=== PATIENT | female | born 1965 | race Caucasian/White ===

== ENCOUNTER 2016-04-27 08:54 | Day surgery (SDC) | payer OTHER ==
[2016-04-27] VITALS (8 sets, daily range): BP systolic 108–136; BP diastolic 73–84; PULSE 73–98; RESP 14–17; O2SAT 95–98
[~2016-04-27] VITALS: Ht 172.7 cm; Wt 79.8 kg
[~2016-04-27 08:54] MED LIST: CHOL200047 PO; Clindamycin 900 mg/50 mL D5W IV ONE; FLUO20CA25 PO; FLUT16SP NS; LEVO88TA4 PO; LIOT5TAB6 PO; MULT-1093 PO
[2016-04-27] MEDS ORDERED: fentaNYL-PF 50 mCg/mL 2 mL Inj ONE (08:55)
[2016-04-27] MEDS ORDERED: Dexamethasone 4 mg/mL Inj ONE (08:55)
[2016-04-27] MEDS ORDERED: Glycopyrrolate 0.2 mg/mL 5 mL Inj ONE (08:55)
[2016-04-27] MEDS ORDERED: Propofol 10,000 mCg/mL 20 mL Inj ONE (08:55)
[2016-04-27] MEDS ORDERED: Ondansetron 2 mg/mL 2 mL Inj ONE (08:55)
[2016-04-27] MEDS: Lactated Ringer's 1,000 ML IV SCH ×2 (09:16→09:46)
--- NOTE | 2016-04-27 09:44 | PCM.HPANE ---
Patient Data Surgeon Admitting Provider: Attending Provider:James Riggins MD Primary Care Physician:Caron Vivas MD Other Provider:[facility] [facility] Reason for Visit Left Ring Finger Ganglion Cyst, Trigger Finger Ht/WT & BMI Height (Feet): 5 Height (Inches): 8 Weight (Kilograms): 79.8 Body Mass Index 26.00 Allergies Coded Allergies: sulfamethoxazole (Verified Allergy, Severe, severe itching, 01/13/09) sulfanilamide (Verified Allergy, Severe, throat swelling, 04/27/16) trimethoprim (Verified Allergy, Severe, severe itching, 01/13/09) cefuroxime (Verified Allergy, Intermediate, Rash,Itching,, 08/21/15) Penicillins (Verified Allergy, Unknown, unknown, 01/13/09) Uncoded Allergies: CHLORAPREP (Allergy, Unknown, RASH, 04/27/16) STATES HAD RASH WITH [facility] Past Anesthesia History Anesthesia History: Denies:: Abnormal Airway, Anesthesia Reactions, Difficult Intubation, Fam Anesthesia Reaction, Fam Malignant Hypertherm Diabetes History Hx Diabetes?: No MRSA MRSA: No Medications Hypertension Medication: No Home Meds Incl Beta Mei: No Reported Medications Fluticasone Propionate (Fluticasone Propionate Nasal)16 Gm Britt.susp1 Britt NS BID #16 GM Ref 0 04/22/16 Cholecalciferol (Vitamin D3) (Vitamin D3)2,000 Unit Capsule4,000 Unit PO DAILY 12/21/15 Multivitamin-Min/Iron/FA/Vit K (Multi-Day Plus Minerals Tablet)18 Mg Iron-400 Mcg-25 Mcg Tablet1 Each PO DAILY 12/21/15 Levothyroxine 88 Mcg Hxjttx58 Mcg PO DAILY Ref 0 12/21/15 Fluoxetine 20 Mg Etjaghr55-68 Mg PO DAILY Ref 0 12/21/15 Liothyronine Sodium (Cytomel)5 Mcg Tablet5 Mcg PO DAILY 12/21/15 History History of ENT Problems?: Yes HEENT History: Positive for:: Sinus Problem (nasal obstruction, nasal drip) Denies:: Abnormal Airway Cataracts Difficult Intubation Dysphagia Hearing Problem TMJ Hx of Heart Problems?: No Cardiovascular History: Denies:: AICD Cardiac Surgery Chest Pain Congestive Heart Failure Edema Heart Murmur Hypertension Pacemaker Hx of Respiratory Problem?: Yes Respiratory History: Positive for:: Pneumonia (a few years ago) Denies:: Asthma COPD Emphysema Oxygen Administration Tuberculosis Use of C-PAP Machine Hx Neurologic Problems?: No Neurological History: Denies:: CVA Dementia Dizziness Headaches Multiple Sclerosis Parkinson's Disease Seizures Hx of GI Problems?: Yes Gastrointestinal History: Denies:: Gastroesphageal Reflux Heartburn Hepatitis Hiatal Hernia Rectal Bleeding Hx of Problems?: No Genitourinary History: Denies:: Kidney Stones Urinary Tract Infection Female Hx: Denies:: Currently (HYSTERECTOMY) Problems with Breasts? Skin History: Denies:: History Skin Disorders? Hx Musculoskeletal Problems?: Yes Musculoskeletal History: Positive for:: Musculoskeletal Trauma (left ring finger current admission problem) Denies:: Back Injury Degenerative Joint Joint Replacement Systemic Lupus Hx of Psycho/Social Problems?: No Psycho Social History: Positive for:: Anxiety Hx Depression Hx Surgeries?: Yes (hysterectomy, lysis of adhesions, C Sections,ovary removed) Hx Any Other Health Problems?: Yes Other History: Positive for:: Thyroid Disease Denies:: Cancer Endocrine Disease Hospitalization History Blood Transfusions: Denies:: Blood Transfusions Hx Diabetes: No Hx Alcohol Use: YesHx Substance Use: Yes (marijuana- daily) Smoking Status: Never Smoker Have You Smoked inLast 12 mo: No (10 years ) Stop/Bang S-Snoring: Do You Snore Loudly: No T-Tired: feel tired, fatigued: No O-Obsered: Observed not breath: No P-Blood Pressure: treated: No B- Body Mass Index > 35 kg/m2: No A- Age over 50: Yes N- Neck Large Circumference: No G- Gender Male: No FANTA Total Score: 1 FANTA Risk Assessment: Low Risk, <3 Yes Risk Assessment Category Category 1A: Patient has history of documented sleep apnea, and HAS NOT received any narcotic, sedative or anesthesia administration during this stay. Category 1B: Patient has history of documented sleep apnea, and HAS received any narcotic , sedative or anesthesia administration during this stay Category 2: Patient has SUSPECTED Obstructive Sleep Apnea, and HAS received any narcotic , sedative or anesthesia administration during this stay. Category 3: Patient has SUSPECTED Obstructive Sleep Apnea and HAS NOT received narcotic, sedative or anesthesia administration during this stay. Category 4: Outpatient in Procedural Areas with known sleep apnea or who screen positive for High Risk via the STOP/BANG questionnaire. Exam Exam General Appearance: Alert, Oriented X3, Cooperative, No Acute Distress HEENT/AIRWAY: MP 2 Lungs: Clear to Auscultation, Normal Air Movement Heart: Exam Unremarkable, Regular Rate/Rhythm, No Murmurs/Rubs/Gallops Meds/Labs/Diagnostics Admission Meds Current Medications Lactated Ringer's (Lr) 1,000 ml @ 120 mls/hr Q8H20M IV Last administered on t 09:16; Start 04/27/16 at 05:00; Stop 04/27/16 at 13:19 Plan Impression Patient chart reviewed, patient interviewed and anesthestic plan with risks, benefits, and alternatives discussed, and informed consent obtained. NPO Status: 04/26/162099 ASA Physical Status: ASA2 Mod Systemic Disease Anesthetic Plan: GA Bene/Risks/Altern/Consents: Yes HP Complete Prior to Induction: Yes Jacques Burton MD Apr 27, 2016 09:34
[2016-04-27] MEDS ORDERED: Ondansetron 2 mg/mL 2 mL Inj IVPUSH PRN (09:45)
[2016-04-27] MEDS ORDERED: Atropine 0.4 mg/mL Inj IVPUSH PRN (09:45)
[2016-04-27] MEDS ORDERED: MetoCLOpramide 5 mg/mL 2 mL Inj IVPUSH PRN (09:45)
[2016-04-27] MEDS ORDERED: Phenylephrine 10,000 mCg/mL Inj IVPUSH PRN (09:45)
[2016-04-27] MEDS ORDERED: Lactated Ringer's 500 ML IV PRN (09:45)
[2016-04-27] MEDS ORDERED: HYDROmorphone 1 mg/mL Inj IVPUSH PRN (09:45)
[2016-04-27] MEDS ORDERED: Lactated Ringer's 1,000 ML IV SCH (09:45)
[2016-04-27] MEDS ORDERED: EPHEDrine Sulfate 50 mg/mL Inj IVPUSH PRN (09:45)
[2016-04-27] MEDS ORDERED: fentaNYL-PF 50 mCg/mL 2 mL Inj IVPUSH PRN (09:45)
[2016-04-27] MEDS ORDERED: hydrALAZINE 20 mg/mL Inj IVPUSH PRN (09:45)
[2016-04-27] MEDS ORDERED: Labetalol 5 mg/mL 4 mL Inj IV PRN (09:45)
[2016-04-27] MEDS ORDERED: Bupivacaine-MPF 0.25% 30 mL Inj INFILTRATE ONE (09:46)
[2016-04-27] MEDS ORDERED: HYDROcodone-APAP 5-325 mg Tablet PO PRN (10:25)
--- NOTE | 2016-04-27 10:29 | PCM.ANEP2 ---
Post Anesthesia Evaluation ASA/CMS Post Anesthesia VS in Patient's Normal Range?: Yes Resp Stable; Airway Patent?: Yes CV Function & Hydration Stable: Yes Mental Status Recovered?: Yes Pain control Satisfactory?: Yes N/V Control Satisfactory?: Yes Jacques Burton MD Apr 27, 2016 10:29
--- NOTE | 2016-04-27 10:29 | PCM.ANEP1 ---
Post Anesthesia Phase 1 PACU Phase 1 Assessment Vital Signs Vital Signs Date Time Temp Pulse Resp B/P Pulse Ox O2 Delivery O2 Flow Rate FiO2 04/27/16 09:29 36.4 73 16 108/74 98 Room Air Anesthetic Administered: GA Level of Alertness: Awake, talking TRAVIS's with Equal Strength: Yes Pain: No Nausea or Vomiting: No Oxygen Delivery: Nasal Cannula Lungs: Clear to Auscultation, Normal Air Movement Summary VSS, alert in PACU Jacques Burton MD Apr 27, 2016 10:29
--- NOTE | 2016-04-27 14:02 | OP ---
[address] [address] OPERATIVE REPORT PATIENT: VIRA CRENSHAW : 1965 MR#: [id number] ADMIT: 04/27/2016 JOB ID: [id number] DATE OF SURGERY: 04/27/2016 PREOPERATIVE DIAGNOSIS(ES): 1. Left ring finger flexor ganglion tendon. 2. Left ring finger trigger finger. POSTOPERATIVE DIAGNOSIS(ES): 1. Left ring finger flexor ganglion tendon. 2. Left ring finger trigger finger. PROCEDURE: 1. Excision of left ring finger flexor ganglion. 2. Left ring finger A1 kristan release. SURGEON: James Riggins MD. TREASURY MANAGEMENT SALES CONSULTANT: None. ANESTHESIA: General anesthesia. COMPLICATIONS: None apparent. SPECIMEN: Left ring finger ganglion to Pathology. ESTIMATED BLOOD LOSS: Minimal. INDICATIONS FOR PROCEDURE: This is a 51-year-old female patient with a history of left ring finger trigger finger. The patient's trigger finger responded to steroid injection with resolution of clicking. However, the patient continued to have pain in this area. Ultrasound demonstrated a ganglion cyst. At this point, excision of the ganglion and A1 kristan release are indicated. PROCEDURES AND FINDINGS: The patient was identified in the preoperative area. Surgical site was marked. The patient was then taken back to the operating room and placed supine on operating table. Appropriate time-outs were taken. General anesthesia was induced smoothly at the patient's request. The patient was then prepped and draped in the usual sterile manner. Local anesthesia was infiltrated to the left hand surgical site. The left upper extremity was then exsanguinated and tourniquet inflated to 250 mmHg. A transverse incision was then made over the ring finger ray just distal to the distal palmar crease. This was done with a #15 blade just through the skin. I then performed blunt dissection with Ragnell retractors down to the underlying flexor apparatus. I then elevated the soft tissue off of the A1 kristan. There was noted that the patient had a small ganglion at the proximal edge of the A1 kristan. This was excised with a #15 blade including the cuff of the A1 kristan. This was passed off to Pathology as a specimen. The A1 kristan was then divided with a pair of tenotomy scissors. Care was taken to ensure the entire A1 kristan was divided proximally and distally. Tourniquet was released. Hemostasis was obtained with electrocautery. The incision was then reapproximated with several 4-0 nylon horizontal mattress sutures. The patient tolerated the procedure well. Needle count, sponge count, and instrument count were correct at the end of the procedure. Patient was transported to recovery extubated in a stable condition.
--- NOTE | 2016-04-28 16:25 | PATH ---
SURGICAL PATHOLOGY Attending Physician:James Riggins CASE STATUS: Signed Out PATIENT NAME: VIRA CRENSHAW PID: [id number] : 1965 DATE COLLECTED:04/27/2016 16:02 SPECIMEN: Ganglion Cyst CLINICAL HISTORY: A: LEFT RING FINGER GANGLION CYST FINAL DIAGNOSIS: 1.LEFT RING FINGER, CYST, BIOPSY: CONSISTENT WITH GANGLION CYST. ICD10 CODE M67.449 GROSS DESCRIPTION: The specimen is received in one formalin filled container labeled with the patient's name, sublabeled "left ring finger ganglion cyst" and consists of a 0.4 x 0.3 x 0.3 CM light caba portion of tissue. The specimen is inked, bisected and totally submitted in one cassette. 04/27/2016 DAC MICRO DESCRIPTION: See diagnosis. ICD-9 CODES: CPT CODES: 1: 23150 Electronically Signed Out Teresa Mercado MD [facility] [address], [place] [address] Technical component performed at [facility], [facility] [address], [place], [address]
[2016-07-12] MEDS ORDERED: FLUO20CA25 PO (15:20)
[2016-07-12] MEDS ORDERED: FLUT16SP NS (15:20)
[2016-07-12] MEDS ORDERED: MULT-1093 PO (15:20)
[2016-07-12] MEDS ORDERED: CHOL40003 PO (15:20)
[2016-07-12] MEDS ORDERED: LEVO88TA4 PO (15:20)
[2016-07-12] MEDS ORDERED: LIOT5TAB6 PO (15:20)
== END 2016-04-27 23:59 | disposition home or self-care (01) ==
LOC: SAS 08:54
PROVIDERS: ATTEND Plastic Surgery
DX: M65.342 Trigger finger, left ring finger (principal); M67.442 Ganglion, left hand
CPT/HCPCS: 26055; 26160; 88304; J1100; J2405; J3010; J7120

== ENCOUNTER 2016-07-14 07:38 | Day surgery (SDC) | payer OTHER ==
[~2016-07-14] VITALS: Ht 172.7 cm; Wt 82.5 kg
--- NOTE | 2016-07-14 06:40 | PCM.HPANE ---
Patient Data Surgeon Admitting Provider: Attending Provider:James Riggins MD Primary Care Physician:Caron Vivas MD Other Provider:[facility] [facility] Reason for Visit Residual Left Ring Trigger Finger & Skin Lesion Ht/WT & BMI Height (Feet): 5 Height (Inches): 8 Weight (Kilograms): 83.46 Body Mass Index 27.00 Allergies Coded Allergies: sulfamethoxazole (Verified Allergy, Severe, severe itching, 01/13/09) sulfanilamide (Verified Allergy, Severe, throat swelling, 04/27/16) trimethoprim (Verified Allergy, Severe, severe itching, 01/13/09) cefuroxime (Verified Allergy, Intermediate, Rash,Itching,, 08/21/15) Penicillins (Verified Allergy, Unknown, unknown, 01/13/09) Uncoded Allergies: CHLORAPREP (Allergy, Unknown, RASH, 04/27/16) STATES HAD RASH WITH [facility] Past Anesthesia History Anesthesia History: Denies:: Abnormal Airway, Anesthesia Reactions, Difficult Intubation, Fam Anesthesia Reaction, Fam Malignant Hypertherm Diabetes History Hx Diabetes?: No MRSA MRSA: No Medications Reported Medications Multivitamin-Min/Iron/FA/Vit K (Multi-Day Plus Minerals Tablet)18 Mg Iron-400 Mcg-25 Mcg Tablet1 Each PO DAILY 07/12/16 Liothyronine Sodium (Cytomel)5 Mcg Tablet5 Mcg PO DAILY 07/12/16 Levothyroxine 88 Mcg Klmiez30 Mcg PO DAILY Ref 0 07/12/16 Fluticasone Propionate (Fluticasone Propionate Nasal)16 Gm [place].susp1 [place] NS BID #16 GM Ref 0 07/12/16 Fluoxetine 20 Mg Qwiumds28-58 Mg PO DAILY Ref 0 07/12/16 Cholecalciferol (Vitamin D3) (Vitamin D3)4,000 Unit Capsule4,000 Unit PO DAILY 07/12/16 Discontinued Reported Medications Fluticasone Propionate (Fluticasone Propionate Nasal)16 Gm [place].susp1 [place] NS BID #16 GM Ref 0 04/22/16 Cholecalciferol (Vitamin D3) (Vitamin D3)2,000 Unit Capsule4,000 Unit PO DAILY 12/21/15 Multivitamin-Min/Iron/FA/Vit K (Multi-Day Plus Minerals Tablet)18 Mg Iron-400 Mcg-25 Mcg Tablet1 Each PO DAILY 12/21/15 Levothyroxine 88 Mcg Qszimr53 Mcg PO DAILY Ref 0 12/21/15 Fluoxetine 20 Mg Jasqtlr28-89 Mg PO DAILY Ref 0 12/21/15 Liothyronine Sodium (Cytomel)5 Mcg Tablet5 Mcg PO DAILY 12/21/15 History History of ENT Problems?: Yes HEENT History: Positive for:: Sinus Problem (nasal obstruction, nasal drip) Denies:: Abnormal Airway Cataracts Difficult Intubation Dysphagia Hearing Problem TMJ Denture Type: None Teeth Condition: Within Normal Limits Hx of Heart Problems?: No Cardiovascular History: Denies:: AICD Cardiac Surgery Chest Pain Congestive Heart Failure Edema Heart Murmur Hypertension Pacemaker Hx of Respiratory Problem?: Yes Respiratory History: Positive for:: Pneumonia (a few years ago) Denies:: Asthma COPD Emphysema Oxygen Administration Tuberculosis Use of C-PAP Machine Hx Neurologic Problems?: No Neurological History: Denies:: CVA Dementia Dizziness Headaches Multiple Sclerosis Parkinson's Disease Seizures Hx of GI Problems?: Yes Hx of Problems?: No Genitourinary History: Denies:: Kidney Stones Urinary Tract Infection Female Hx: Denies:: Currently (HYSTERECTOMY) Problems with Breasts? Skin History: Denies:: History Skin Disorders? Hx Musculoskeletal Problems?: Yes Musculoskeletal History: Positive for:: Musculoskeletal Trauma (left ring finger current admission problem- prior surgery here 05/06) Denies:: Back Injury Degenerative Joint Joint Replacement Systemic Lupus Hx of Psycho/Social Problems?: No Psycho Social History: Positive for:: Anxiety Hx Depression Hx Surgeries?: Yes (hysterectomy, lysis of adhesions, C Sections,ovary removed) Hx Any Other Health Problems?: Yes Other History: Positive for:: Thyroid Disease Denies:: Cancer Endocrine Disease Hospitalization History Blood Transfusions: Denies:: Blood Transfusions Hx Diabetes: No Hx Alcohol Use: YesHx Substance Use: Yes (marijuana- daily) Smoking Status: Never Smoker Have You Smoked inLast 12 mo: No (10 years ) Stop/Bang P-Blood Pressure: treated: No B- Body Mass Index > 35 kg/m2: No A- Age over 50: Yes N- Neck Large Circumference: No G- Gender Male: No FANTA Risk Assessment: Low Risk, <3 Yes Risk Assessment Category Category 1A: Patient has history of documented sleep apnea, and HAS NOT received any narcotic, sedative or anesthesia administration during this stay. Category 1B: Patient has history of documented sleep apnea, and HAS received any narcotic , sedative or anesthesia administration during this stay Category 2: Patient has SUSPECTED Obstructive Sleep Apnea, and HAS received any narcotic , sedative or anesthesia administration during this stay. Category 3: Patient has SUSPECTED Obstructive Sleep Apnea and HAS NOT received narcotic, sedative or anesthesia administration during this stay. Category 4: Outpatient in Procedural Areas with known sleep apnea or who screen positive for High Risk via the STOP/BANG questionnaire. Exam Exam General Appearance: Alert, Oriented X3, Cooperative, No Acute Distress HEENT/AIRWAY: MP 2 Lungs: Clear to Auscultation, Normal Air Movement Heart: Exam Unremarkable, Regular Rate/Rhythm, No Murmurs/Rubs/Gallops Plan Impression Patient chart reviewed, patient interviewed and anesthestic plan with risks, benefits, and alternatives discussed, and informed consent obtained. NPO per Anesth. Guidelines: Yes ASA Physical Status: ASA2 Mod Systemic Disease Anesthetic Plan: GA, MAC Bene/Risks/Altern/Consents: Yes HP Complete Prior to Induction: Yes Ryan Duque MD Jul 14, 2016 06:40
[~2016-07-14 07:38] MED LIST changes: -CHOL200047 PO; +CHOL40003 PO
[2016-07-14] MEDS ORDERED: fentaNYL-PF 50 mCg/mL 2 mL Inj ONE (07:39)
[2016-07-14] MEDS ORDERED: Propofol 10,000 mCg/mL 20 mL Inj ONE (07:39)
[2016-07-14] MEDS: Lactated Ringer's 1,000 ML IV SCH ×2 (08:13→09:49)
[2016-07-14 08:14] VITALS: BP 130/70; PULSE 74; RESP 16; O2SAT 96
[2016-07-14] MEDS ORDERED: Lactated Ringer's 1,000 ML IV SCH (09:57)
[2016-07-14] MEDS ORDERED: Lactated Ringer's 500 ML IV PRN (09:57)
[2016-07-14] MEDS ORDERED: fentaNYL-PF 50 mCg/mL 2 mL Inj IVPUSH PRN (10:00)
[2016-07-14] MEDS ORDERED: HYDROmorphone 1 mg/mL Inj IVPUSH PRN (10:00)
[2016-07-14] MEDS ORDERED: MetoCLOpramide 5 mg/mL 2 mL Inj IVPUSH PRN (10:00)
[2016-07-14] MEDS ORDERED: Ondansetron 2 mg/mL 2 mL Inj IVPUSH PRN (10:00)
[2016-07-14] MEDS ORDERED: EPHEDrine Sulfate 50 mg/mL Inj IVPUSH PRN (10:00)
[2016-07-14] MEDS ORDERED: Phenylephrine 10,000 mCg/mL Inj IVPUSH PRN (10:00)
[2016-07-14] MEDS ORDERED: Dexamethasone 4 mg/mL Inj IVPUSH PRN (10:00)
[2016-07-14] MEDS ORDERED: Bupivacaine-MPF 0.25% 30 mL Inj INFILTRATE ONE (10:10)
[2016-07-14] MEDS ORDERED: HYDROcodone-APAP 5-325 mg Tablet PO PRN (10:35)
[2016-07-14 10:41] VITALS: BP 116/73; PULSE 58; RESP 14; O2SAT 98
--- NOTE | 2016-07-14 10:53 | PCM.ANEP1 ---
Post Anesthesia Phase 1 PACU Phase 1 Assessment Vital Signs Vital Signs Date Time Temp Pulse Resp B/P Pulse Ox O2 Delivery O2 Flow Rate FiO2 07/14/16 10:41 36.4 58 14 116/73 98 Room Air 07/14/16 08:14 36.3 74 16 130/70 96 Room Air Level of Alertness: Awake, talking TRAVIS's with Equal Strength: Yes Pain: No Nausea or Vomiting: No Cardiovascular Function and Hy: Yes Lungs: Clear to Auscultation, Normal Air Movement Ryan Duque MD Jul 14, 2016 10:53
[2016-07-14 11:21] VITALS: BP 116/70; PULSE 63; RESP 16; O2SAT 99
--- NOTE | 2016-07-18 14:18 | PATH ---
SURGICAL PATHOLOGY Attending Physician:James Riggins CASE STATUS: Signed Out PATIENT NAME: VIRA CRENSHAW PID: [id number] : 1965 DATE COLLECTED:07/14/2016 15:35 SPECIMEN: Skin, biopsy CLINICAL HISTORY: RESIDUAL LEFT RING FINGER TRIGGER FINGER + SKIN LESION, SAME 1. 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 ICD10 CODE M72.0 GROSS DESCRIPTION: The specimen is received in one formalin filled container labeled with the patient's name, sublabeled "left palmar Dupuytren" and consists of a yellow-rider rough portion of tissue which measures 1.6 x 0.8 x 0.3 CM. The specimen is inked blue, The specimen is sectioned into 5 pieces and entirely submitted in one cassette. 07/14/2016 DAC MICRO DESCRIPTION: See diagnosis. ICD-9 CODES: CPT CODES: 23967 Electronically Signed Out Steven Barajas MD [facility] [address], [place] [address] Technical component performed at [facility], [facility] [address], [place], [address]
--- NOTE | 2016-07-19 09:24 | OP ---
[address] [address] OPERATIVE REPORT PATIENT: VIRA CRENSHAW : 1965 MR#: [id number] ADMIT: 07/14/2016 JOB ID: [id number] DATE OF SURGERY: 07/14/2016 PREOPERATIVE DIAGNOSIS(ES): 1. Left ring finger pain. 2. Left ring finger likely residual trigger finger. POSTOPERATIVE DIAGNOSIS(ES): 1. Left ring finger Dupuytren disease with Dupuytren nodule. 2. Residual left ring finger trigger finger. PROCEDURE: 1. Exploration of left hand. 2. Left hand palmar fasciectomy for Dupuytren disease. 3. Revision A1 kristan release of the left ring finger. SURGEON: James Riggins MD. RUBBER MOULDING MACHINE OPERATOR: None. ANESTHESIA: MAC with local. COMPLICATIONS: None apparent. SPECIMEN: Left ring finger palmar fascia to Pathology. INDICATIONS FOR PROCEDURE: This is a 51-year-old female patient with history of left ring finger trigger finger. Patient underwent left ring finger trigger release with excision of a flexor tendon ganglion on April 27, 2016. Postoperatively, the patient continues to have significant left hand pain, especially at the scar. The patient also has a more deep-seated pain along the flexor tendon with swelling. The patient also has some crepitus with full flexion. At this point, patient is eight weeks after the surgery and continues to have her symptoms. The patient failed steroid injection. At this point, exploration of the area is indicated with revision trigger release. PROCEDURES AND FINDINGS: The patient was identified in the preoperative area. Surgical site was marked. It was noted that the patient's transverse scar has healed. The scar continues to be slightly indurated and the area around the surgical site is indurated. A amando was then drawn around her previous incision. The patient was then taken back to the operating room and placed supine on the operating room table. Appropriate time-outs were taken. MAC was induced smoothly. The patient was then prepped and draped in the usual sterile manner. Local anesthesia was then infiltrated to the surgical site consisting of 1% lidocaine and 0.25% Marcaine. The patient's left upper extremity was then exsanguinated and tourniquet inflated to 250 mmHg. Incision was then made at around the previous scar with a #15 blade down into the underlying subcutaneous tissue. The scar was then excised. It was noted that patient has significant thickening of her palmar fascia consistent with Dupuytren disease that was a bit aggravated by her previous surgery. At this point, I gently elevated the skin flap off of this area of a second superficial fascia with a #15 blade. An area of approximately 2 cm x 1 cm was elevated. The 2 cm was along the ring finger ray. Once this had been done, I dissected through the palmar fascia with blunt dissection with a pair of tenotomy scissors at the medial and lateral end of the area of dissection where the palmar fascia appears to attenuate some. Once this had been done, I dissected the soft tissue off of the underside of the thickened superficial palmar fascia, through the ulnar and lateral incisions. Once this had been done, this piece of thickened superficial palmar fascia was excised proximally and distally again with a pair of tenotomy scissors. This was passed off to Pathology as a specimen. I then deepened the incision bluntly down to the underlying flexor apparatus. It was noted that there was some inflammatory tissue and scar tissue has already formed over the previous area of release. Incision was then made with a 15 blade through this healing tissue and scar tissue until the flexor apparatus and flexor tendons were exposed. I then split this tissue all the way distally to past the palmar digital crease. Care was taken to make sure the A1 kristan was completely opened in this area. Proximally, I again opened up this scar tissue, as well as any residual transverse fascial bands all the way down into the mid palm. At this point, the MAC was lightened up. The patient was asked to flex her ring finger through full range of motion. The patient reports smooth tendon gliding. The patient denies any crepitus or clicking. Tourniquet was released, and hemostasis was obtained with electrocautery. The incision was then reapproximated with several 4-0 nylon horizontal mattress sutures. The patient tolerated the procedure well. Needle count, sponge count, instrument counts were correct at the end of the procedure. The patient was transported to recovery in stable condition.
== END 2016-07-14 23:59 | disposition home or self-care (01) ==
LOC: SAS 07:38
PROVIDERS: ATTEND Plastic Surgery
DX: M72.0 Palmar fascial fibromatosis [Dupuytren] (principal); M65.342 Trigger finger, left ring finger; E03.9 Hypothyroidism, unspecified; E78.5 Hyperlipidemia, unspecified; F41.9 Anxiety disorder, unspecified; L80 Vitiligo
CPT/HCPCS: 26040; 88304; J2250; J3010; J7120

== ENCOUNTER → 2016-11-28 | Day surgery (SDC) | payer OTHER ==
[2016-11-28] VITALS (8 sets, daily range): BP systolic 107–150; BP diastolic 66–86; PULSE 60–88; RESP 14–16; O2SAT 92–99
[~2016-11-28] VITALS: Ht 172.7 cm; Wt 80.5 kg
[~2016-11-28] MED LIST changes: +Bupivacaine-MPF 0.5% 30 mL Inj INFILTRATE ONE; -Clindamycin 900 mg/50 mL D5W IV ONE; +Dexamethasone 10 mg/mL Inj IV ONE; +Dexamethasone 4 mg/mL Inj IVPUSH PRN; +Dexamethasone Inj 20 MG in 0.9% Sodium Chloride-Pha MIX 50 ML IV ONE; +EPHEDrine Sulfate 50 mg/mL Inj IVPUSH PRN; +Glycopyrrolate 0.2 MG/ML 1mL Inj ONE; +HYDROcodone-APAP 7.5-325 mg/15 mL 15 mL Solution ONE; +HYDROmorphone 1 mg/mL Inj IVPUSH PRN; +Lactated Ringer's 1,000 ML IV ONE; +Lactated Ringer's 1,000 ML IV SCH; +Lactated Ringer's 500 ML IV PRN; +Lidocaine 1%-Epi 1:100,000 20 mL Inj INFILTRATE ONE; +MetoCLOpramide 5 mg/mL 2 mL Inj IVPUSH PRN; +Neostigmine 1 mg/mL 10 mL Inj ONE; +Ondansetron 2 mg/mL 2 mL Inj IVPUSH PRN; +Ondansetron 2 mg/mL 2 mL Inj ONE; +Phenylephrine 10,000 mCg/mL Inj IVPUSH PRN; +Propofol 10,000 mCg/mL 20 mL Inj ONE; +fentaNYL-PF 50 mCg/mL 2 mL Inj IVPUSH PRN; +fentaNYL-PF 50 mCg/mL 2 mL Inj ONE
--- NOTE | 2016-11-28 09:31 | PCM.HPANE ---
Patient Data Date of Service: Nov 28, 2016 Surgeon Admitting Provider: Attending Provider:Donnell Cortez MD Primary Care Physician:Caron Vivas MD Other Provider:Alexis Pastrana Anesthesia Reason for Visit Sleep Apnea,Respiratory Obstruction,Snoring Ht/WT & BMI Height (Feet): 5 Height (Inches): 8 Weight (Kilograms): 80.5 Body Mass Index 26.00 Allergies Coded Allergies: sulfamethoxazole (Verified Allergy, Severe, severe itching, 01/13/09) sulfanilamide (Verified Allergy, Severe, throat swelling, 04/27/16) trimethoprim (Verified Allergy, Severe, severe itching, 01/13/09) cefuroxime (Verified Allergy, Intermediate, Rash,Itching,, 08/21/15) Penicillins (Verified Allergy, Unknown, unknown, 01/13/09) Uncoded Allergies: CHLORAPREP (Allergy, Unknown, RASH, 04/27/16) STATES HAD RASH WITH [facility] Past Anesthesia History Anesthesia History: Denies:: Abnormal Airway, Anesthesia Reactions, Difficult Intubation, Fam Anesthesia Reaction, Fam Malignant Hypertherm Diabetes History Hx Diabetes?: No MRSA MRSA: No Medications Hypertension Medication: No Home Meds Incl Beta Mei: No Reported Medications Liothyronine Sodium (Cytomel)5 Mcg Tablet5 Mcg PO DAILY 07/12/16 Levothyroxine 88 Mcg Qnyuzt69 Mcg PO DAILY Ref 0 07/12/16 Fluticasone Propionate (Fluticasone Propionate Nasal)16 Gm [place].susp1 [place] NS BID #16 GM Ref 0 07/12/16 Fluoxetine 20 Mg Ardsgnr27-17 Mg PO DAILY Ref 0 07/12/16 Cholecalciferol (Vitamin D3) (Vitamin D3)4,000 Unit Capsule4,000 Unit PO DAILY 07/12/16 Discontinued Reported Medications Multivitamin-Min/Iron/FA/Vit K (Multi-Day Plus Minerals Tablet)18 Mg Iron-400 Mcg-25 Mcg Tablet1 Each PO DAILY 07/12/16 History History of ENT Problems?: Yes HEENT History: Positive for:: Sinus Problem (hx of nasal septoplasty, nasal obstruction snore current admission problem) Denies:: Abnormal Airway Cataracts Difficult Intubation Dysphagia Glaucoma Hearing Problem TMJ Denture Type: None Teeth Condition: Within Normal Limits Hx of Heart Problems?: No Cardiovascular History: Denies:: AICD Abdominal Aortic Aneurism Atrial Fibrillation Cardiac Surgery Chest Pain Congestive Heart Failure Edema Heart Murmur Hypertension Irregular Heartbeat Pacemaker Hx of Respiratory Problem?: Yes Respiratory History: Positive for:: Pneumonia (remote hx of about 6 years ) Denies:: Asthma COPD Emphysema Oxygen Administration Pulmonary Embolism Tuberculosis Use of C-PAP Machine (CPAP ineffective- mouth breather) Hx Neurologic Problems?: No Neurological History: Denies:: CVA Dementia Dizziness Headaches Multiple Sclerosis Parkinson's Disease Seizures Hx of GI Problems?: Yes Hx of Problems?: No Genitourinary History: Denies:: Kidney Stones Urinary Tract Infection Female Hx: Denies:: Currently (hysterectomy) Problems with Breasts? Skin History: Denies:: History Skin Disorders? Pressure Ulcers Hx Musculoskeletal Problems?: Yes Musculoskeletal History: Positive for:: Fibromyalgia Musculoskeletal Trauma (multiple hand, finger surgery recently) Denies:: Back Injury Degenerative Joint Joint Replacement Osteoarthritis Rheumatoid Arthritis Systemic Lupus Hx of Psycho/Social Problems?: No Psycho Social History: Positive for:: Anxiety Hx Depression Hx Surgeries?: Yes (hysterectomy, lysis of adhesions, C Sections,ovary removed) Hx Any Other Health Problems?: Yes Other History: Positive for:: Thyroid Disease Denies:: Cancer Endocrine Disease Hospitalization History Blood Transfusions: Positive for:: Accept Blood Products? Denies:: Blood Transfusions Hx Diabetes: No Hx Alcohol Use: YesAlcoholic Drinks Per Day: 5 dinks monthlyHx Substance Use: Yes (marijuana- inhale daily) Smoking Status: Never Smoker Have You Smoked inLast 12 mo: No (10 years ) Stop/Bang Treated for Sleep Apnea?: No Do You Have a CPAP Machine?: No S-Snoring: Do You Snore Loudly: Yes T-Tired: feel tired, fatigued: No O-Obsered: Observed not breath: No P-Blood Pressure: treated: No B- Body Mass Index > 35 kg/m2: No A- Age over 50: Yes N- Neck Large Circumference: No G- Gender Male: No FANTA Total Score: 2 FANTA Risk Assessment: High Risk, =/>3 Yes FANTA Category 1: Yes Risk Assessment Category Category 1A: Patient has history of documented sleep apnea, and HAS NOT received any narcotic, sedative or anesthesia administration during this stay. Category 1B: Patient has history of documented sleep apnea, and HAS received any narcotic , sedative or anesthesia administration during this stay Category 2: Patient has SUSPECTED Obstructive Sleep Apnea, and HAS received any narcotic , sedative or anesthesia administration during this stay. Category 3: Patient has SUSPECTED Obstructive Sleep Apnea and HAS NOT received narcotic, sedative or anesthesia administration during this stay. Category 4: Outpatient in Procedural Areas with known sleep apnea or who screen positive for High Risk via the STOP/BANG questionnaire. Exam Exam Vital Signs Vital Signs Date Time Temp Pulse Resp B/P Pulse Ox O2 Delivery O2 Flow Rate FiO2 11/28/16 07:01 36.3 60 16 107/66 96 Room Air General Appearance: Alert HEENT/AIRWAY: MP 1 Lungs: Clear to Auscultation Heart: Exam Unremarkable, Regular Rate/Rhythm Meds/Labs/Diagnostics Admission Meds Current Medications Lactated Ringer's 1,000 ml @ 120 mls/hr [id number] ONCE IV Last administered on 06:47; Start 11/28/16 at 05:00; Stop 11/28/16 at 13:19 Dexamethasone Sodium Phosphate/ Sodium Chloride (Decadron Inj/ Normal Saline PHARMACY TO MIX) 52 ml @ 208 mls/hr OT ONCE IV Last administered on 07:13; Start 11/28/16 at 06:00; Stop 11/28/16 at 06:14; Status DC Bupivacaine HCl (Sensorcaine-MPF 0.5% Inj) 30 ml STK-MED ONCE INFILTRATE Last administered on 11/28/16 09:14; Start 11/28/16 at 09:14; Stop 11/28/16 at 09:15 ; Status DC Lidocaine/ Epinephrine (Xylocaine 1%-Epinephrine 1:100,000 Inj) 20 ml STK-MED ONCE INFILTRATE Last administered on 11/28/16 09:14; Start 11/28/16 at 09:14; Stop 11/28/16 at 09:15; Status DC Plan Impression Patient chart reviewed, patient interviewed and anesthestic plan with risks, benefits, and alternatives discussed, and informed consent obtained. NPO per Anesth. Guidelines: Yes ASA Physical Status: ASA2 Mod Systemic Disease Anesthetic Plan: GA Bene/Risks/Altern/Consents: Yes HP Complete Prior to Induction: Yes Magno Blackburn MD Nov 28, 2016 09:31
--- NOTE | 2016-11-28 10:03 | OP ---
[address] [address] OPERATIVE REPORT PATIENT: VIRA CRENSHAW : 1965 MR#: [id number] ADMIT: 11/28/2016 JOB ID: [id number] DATE OF SURGERY: 11/28/2016 SURGEON: Donnell Cortez MD PREOPERATIVE DIAGNOSIS(ES): Obstructive sleep apnea inability to use constant positive airway pressure. POSTOPERATIVE DIAGNOSIS(ES): Obstructive sleep apnea inability to use constant positive airway pressure. OPERATION PERFORMED: Uvulopalatopharyngoplasty. INDICATIONS FOR PROCEDURE: Obstructive sleep apnea, inability to use constant positive airway pressure. OPERATIVE FINDINGS: Elongated and posterior retracted soft palate which could be part of her obstructive sleep apnea syndrome etiology. OPERATIVE PROCEDURE: With the patient supine on the operating table general orotracheal anesthesia was used. Tongue and soft palate retracted. Small adenoids noted. Elongation and retrodisplacement of the soft palate noted. Tonsils were absent. The tonsil fossa was recreated by removing the tonsil fossa mucosa with Alexandre scissors. Hemostasis was gained with pinpoint cautery, bismuth paste, and suction. At the junction of the upper 1/3, lower 2/3 of the posterior tonsillar pillar this was divided to approximately the level of the posterior pharyngeal wall. This created two triangles, the upper triangle was tacked high into the tonsillar fossa anteriorly with a 3-0 Vicryl suture, which approached the hamulus to draw it anteriorly and sutured and left in place. The rest of the tonsil fossa was closed with an imbricating suture of 2-0 chromic suture, two on each side. Both sides were sutured in similar fashion. This ended up drawing the soft palate a reasonable amount forward, but with pressure against the remaining soft palate. The nasopharyngeal space could be closed. Procedure terminated. Patient turned over to anesthesia for emergence from anesthetics without known complications.
--- NOTE | 2016-11-28 11:21 | PCM.ANEP1 ---
Post Anesthesia PACU Phase 1 Assessment Vital Signs Vital Signs Date Time Temp Pulse Resp B/P Pulse Ox O2 Delivery O2 Flow Rate FiO2 11/28/16 11:07 62 14 150/86 96 Room Air 11/28/16 10:32 70 15 135/77 94 Room Air 11/28/16 10:16 76 15 120/70 94 Room Air 11/28/16 10:00 87 15 139/78 92 Room Air 11/28/16 09:55 88 14 139/78 95 Room Air 11/28/16 09:54 36.8 88 14 137/81 96 Simple Mask 10 11/28/16 07:01 36.3 60 16 107/66 96 Room Air Anesthetic Administered: GA Level of Alertness: Awake, talking Pain: No Nausea or Vomiting: No CV Function & Hydration Stable: Yes Airway Device: Oxygen Delivery: Simple Mask Lungs: Clear to Auscultation PACU Phase 2 Assessment Patient Instructions Provided: Yes Magno Blackburn MD Nov 28, 2016 11:21
== END | disposition home or self-care (01) ==
LOC: SAS 06:21
PROVIDERS: ATTEND Otolaryngology Facial Plastic Surgery
DX: G47.33 Obstructive sleep apnea (adult) (pediatric) (principal); J98.8 Other specified respiratory disorders; R06.83 Snoring; M79.7 Fibromyalgia; F41.8 Other specified anxiety disorders; Z90.710 Acquired absence of both cervix and uterus; F12.90 Cannabis use, unspecified, uncomplicated
CPT/HCPCS: 42145; J1100; J2405; J2704; J2710; J3010; J7120